=== PATIENT | male | born 1960 | race Caucasian/White ===

== ENCOUNTER 2017-09-13 11:22 | Emergency (ER) | payer BC ==
[~2017-09-13] VITALS: Ht 182.9 cm; Wt 73.0 kg
[~2017-09-13 11:22] MED LIST: ALPR0.5T99; TRAM50 PO
[2017-09-13 11:41] VITALS: BP 131/76; PULSE 84; RESP 18; TEMP 98.3; O2SAT 96
[2017-09-13] MEDS ORDERED: ALPR1TAB3 PO (11:48)
--- NOTE | 2017-09-13 11:54 | PD ---
HPI Chief Complaint: Cold / Flu Symptoms Time Seen by Provider: 11:49 Travel History International Travel<30 days: No Contact w/Intl Traveler<30days: No Traveled to known affect area: No History of Present Illness HPI 57-year-old male presents for evaluation of cough, congestion, fevers. Symptoms started 6 days ago. He reports that he has had fevers as high as 103 at home, improved with use of NyQuil and ibuprofen. He reports that he has had a cough with yellow sputum production. His has had similar symptoms. Denies abdominal pain, nausea or vomiting, diarrhea. Denies rash or recent travel. He has no other complaints at this time. [facility] Past Medical History Anxiety: Yes Diminished Hearing: No Immunizations Current: No Tetanus Vaccination: < 5 Years Influenza Vaccination: No Past Surgical History Abdominal Surgery: Yes Oral Surgery: Yes ("1986 & 2003--SINUS SURGERY"polyps) Other Surgery: Yes (2004--L.INGUINAL HERNIA--MESH INSERTED) Social History Alcohol Use: No Tobacco Use: Yes (1 pk) Substance Use: No Allergies-Medications (Allergen,Severity, Reaction): Coded Allergies: No Known Allergies (Verified Adverse Reaction, Unknown, 09/13/17) Reported Meds & Prescriptions Reported Meds & Active Scripts Active Reported Alprazolam 1 Mg Tab 1 Mg PO DAILY PRN Review of Systems Except as stated in HPI: all other systems reviewed are Neg Physical Exam Narrative GENERAL: Well-developed well-nourished male in no acute distress SKIN: Warm and dry. HEAD: Atraumatic. Normocephalic. EYES: Pupils equal and round. No scleral icterus. No injection or drainage. ENT: No nasal bleeding or discharge. Mucous membranes pink and moist. NECK: Trachea midline. No JVD. CARDIOVASCULAR: Regular rate and rhythm. No murmur appreciated. RESPIRATORY: No accessory muscle use. Clear to auscultation. Breath sounds equal bilaterally. No crackles no wheezing or rhonchi GASTROINTESTINAL: Abdomen soft, non-tender, nondistended. Hepatic and splenic margins not palpable. MUSCULOSKELETAL: No obvious deformities. No clubbing. No cyanosis. No edema. NEUROLOGICAL: Awake and alert. No obvious cranial nerve deficits. Motor grossly within normal limits. Normal speech. PSYCHIATRIC: Appropriate mood and affect; insight and judgment normal. Data Data Last Documented VS Vital Signs Date Time Temp Pulse Resp B/P (MAP) Pulse Ox O2 Delivery O2 Flow Rate FiO2 09/13/17 11:48 96 Room Air 09/13/17 11:41 98.3 84 18 131/76 (94) Orders Orders Influenzae A/B Antigen (09/13/17 11:52) Chest, Single Ap (09/13/17 ) Ed Discharge Order (09/13/17 12:40) MDM Medical Decision Making Medical Screen Exam Complete: Yes Emergency Medical Condition: Yes Medical Record Reviewed: Yes Differential Diagnosis Influenza, pneumonia, bronchitis, sinusitis, pharyngitis Narrative Course 57-year-old male presents with 6 days of cough, congestion, fevers. He appears well. Plan is for chest x-ray and influenza antigen. Chest x-ray is normal. Influenza antigen is negative. The patient was informed of the results. I suspect he has a viral syndrome. Supportive care recommended. He is stable for discharge. Diagnosis Primary Impression: Upper respiratory infection Departure Forms: Tests/Procedures, Work Release Enter return to work date: Sep 15, 2017 Additional Instructions: Stay well-hydrated and well-nourished, get plenty of rest. Take Tylenol or Motrin for fevers. Use [id number] cough suppressants. Follow-up with primary care physician as needed and return for any acutely new or worsening symptoms. Med/Other Pt SpecificInfo: No Change to Meds Disposition: 01 DISCHARGE HOME Condition: Stable Yordy Dorantes Sep 13, 2017 11:54
--- NOTE | 2017-09-13 12:07 | RADRPT ---
EXAM DATE/TIME: 09/13/2017 11:57 [facility] COMPARISON: No previous studies available for comparison. INDICATIONS : Cough and congestion MEDICAL HISTORY : None. SURGICAL HISTORY : None. ENCOUNTER: Initial ACUITY: 4 - 6 days PAIN SCORE: 0/10 LOCATION: Bilateral chest FINDINGS: A single view of the chest demonstrates the lungs to be symmetrically aerated without evidence of mas s, infiltrate or effusion. The cardiomediastinal contours are unremarkable. Osseous structures are intact. CONCLUSION: The lungs are clear. Gerardo Love MD on September 13, 2017 at 12:05 Board Certified Radiologist. This report was verified electronically.
== END 2017-09-13 13:01 | disposition home or self-care (01) ==
LOC: PHEFT 11:22
DX: J06.9 Acute upper respiratory infection, unspecified (principal); R05 Cough; R50.9 Fever, unspecified; F41.9 Anxiety disorder, unspecified; F17.200 Nicotine dependence, unspecified, uncomplicated
CPT/HCPCS: 71045; 87804; 99284